=== PATIENT | female | born 1970 | race Asian ===

== ENCOUNTER 2019-02-09 12:02 | Day surgery (SDC) | payer BC ==
[2019-02-09] MEDS ORDERED: EPHEDrine 25 MG/5 ML SYG (15:00)
[2019-02-09] MEDS ORDERED: PROPOFOL 20 ML ×2 (15:05→15:30)
== END 2019-02-09 19:22 | disposition home or self-care (01) ==
LOC: GIL 12:02
DX: Z12.11 Encounter for screening for malignant neoplasm of colon (principal); D12.6 Benign neoplasm of colon, unspecified; K64.8 Other hemorrhoids
CPT/HCPCS: 45380; 88305